=== PATIENT | male | born 1960 | race Caucasian/White ===

== ENCOUNTER 2020-01-22 12:01 | Inpatient (IN) | payer OTHER ==
[~2020-01-22] VITALS: Ht 172.7 cm; Wt 86.2 kg
[2020-01-22 11:45] VITALS: BP 145/63
--- NOTE | 2020-01-22 13:59 | NUR ---
ASSUMED CARE AT 1145. NEW ADMISSION FROM [facility], ARRIVED AT 1141 VIA EMS. PT IS ALERT AND ORIENTATED.DENIES ANY PAIN. EMS REPORTED PT WAS HYPERTENSIVE BUT HE IS STABLE UPON ARRIVAL TO UNIT. PT ABLE TO WALK WITH MIN ASSISTANCE FROM CART TO BED. PLAN FOR HD TODAY AND CALLED DR LYN FOR NEW CONSULT. LAST DIALYSIS WAS ON THURSDAY 01/18. L FA AV FISTULA INTACT AND +/+ BRUIT AND THRILLS. PT IS ANURIC, LAST BM ON 01/20. BS 149. PT DENIES ANY HISTORY OF STROKE OR SEIZURE. ON A MECHANICAL SOFT DIET WITH NECTAR LIQUID. SPOKE TO KARIME FERNANDEZ AT () AND WAS NOT SURE IF PT HAS DYSPHAGIA. REPORTED PT ABLE TO TAKE MEDS WHOLE WITH NECTAR LIQ. WAS ALSO GETTING BRIVARACETAM SOLUTION FOR SEIZURE ORDERED BY NEUROLOGY. LAST EEG SHOWED NO SEIZURE AND NO SEIZURE PRECAUTION ORDERED. PT HAS A HX OF ALLERGY TO SIMVASTATIN BUT UNABLE TO INFORM OF REACTION AND WAS NOT AWARE. PT IS ON ATORVASTATIN CURRENTLY. SPOKE TO ROXY LIPCOAT SPRAYER, WILL MAKE CHANGES IF NEEDED. ACTIVITY PER REPORT AND NO SEIZURE PRECAUTION WAS ORDERED. SPOKE TO ROXY LIPCOAT SPRAYER AND WILL SEE PT AND MAKE CHANGES IF NEEDED.
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
[2020-01-22 21:00] VITALS: BP 145/73
--- NOTE | 2020-01-23 00:11 | NUR ---
PT ALERT AND ORIENTED X 4. PT REQUESTED 02 AT 2L PER NC AT [facility] FOR COMFORT. LEFT ARM FISTULA WITH BRUIT AND THRILL. PT TAKES MEDS WHOLE WITH NECTAR THICK LIQUIDS. BLOOD SUGAR 257 AT HS. INSULIN GIVEN ORDERED. PT DENIES PAIN OR DISCOMFORT. BED ALARM ON FOR SAFETY. PT APPEARS TO BE SLEEPING ON HOURLY ROUNDS.
[2020-01-23 05:49] LABS: HEMATOCRIT 31.1 % (42.0-52.0); HEMOGLOBIN 10.3 gm/dL (14.0-18.0); MCH 30.4 pg (26.0-34.0); MCHC 33.3 g/dL (28.0-37.0); MCV 91.5 fL (80.0-100.0); RBC 3.39 mil/uL (4.50-6.00); RDW 15.3 % (10.5-14.5); WBC 6.5 thou/uL (4.0-11.0)
[2020-01-23 06:14] LABS: CALCIUM 8.4 mg/dL (8.5-10.1); CREATININE 11.1 mg/dL (0.7-1.3); POTASSIUM 4.4 mmol/L (3.5-5.1)
[2020-01-23 06:22] LABS: CHOLESTEROL 173 mg/dL (<200); HDL CHOLESTEROL 48 mg/dL (>40); LDL CHOLESTEROL 81 mg/dL (<100); TC:HDL 3.6 Ratio (Not establshd); TRIGLYCERIDE 221 mg/dL (<150); VLDL 44 mg/dL (<40)
[2020-01-23 06:27] LABS: SERUM ASSESSMENT Clear
[2020-01-23 06:49] LABS: FOLIC ACID 22.9 ng/mL (8.6-58.9)
[2020-01-23 07:15] VITALS: BP 135/58
--- NOTE | 2020-01-23 09:37 | NUR ---
ASSUMED CARE AT 0700. PATIENT IS ALERT AND ORIENTED X3. PATIENT BOWEN'S, VENTILATING EQUIPMENT INSTALLER ARE EQUAL. LUNGS ARE CLEAR AND DEMINISHED. ABD IS SOFT WITH BSX4. PATIENT IS A DIALYSIS PATIENT. PATIENT HAS LEFT UPPER ARM FISTULA FOR DIALYSIS. NEPHROLOGY HERE TO SEE PATIENT . PLAN DIALYSIS LATER TODAY. BS 250 THIS A.M. INSULIN GIVEN. UP WITH ASSIST OF 1 STAFF AND GAIT BELT AND WALKER TO AMBULATE. PATIENT DOESN'T VOID. FALL AND SAFETY PROTOCOLS IN PLACE. DENIES PAIN AT THIS TIME. CONTINUES TO PROGRESS SLOWLY TOWARDS D/C GOALS. WILL CONTINUE TO MONITER.
--- NOTE | 2020-01-23 12:44 | NUR ---
team meeting, reccomendation: re team . need to discuss with family dcp and location. he will need dme and dialysis set up for outpt.
--- NOTE | 2020-01-23 16:14 | NUR ---
I have reviewed the documentation by MACY CACERES from 01/23/20 to 01/23/20 and I concur with it. ANGI RECINOS, PT, DPT
[2020-01-23 19:35] VITALS: BP 161/83
--- NOTE | 2020-01-23 21:30 | NUR ---
MEDS WITH SIPS OF NECTAR THICK WATER, STATES NOT THIRSTY OTHERWISE. 11 UNITS LANTUS INSULIN GIVEN FOR BLOOD SUGAR OF 171. APPRECIATES DARK ROOM
[2020-01-24 04:06] LABS: GLYCOHEMOGLOBIN (HGB A1C) 10.3 % (4.8-5.6)
--- NOTE | 2020-01-24 06:04 | NUR ---
SLEPT A LITTLE BUT STATES DID NOT START UNTIL MIDNIGHT. BP THIS MORNING 111/58, DECIDED TO HOLD CLONIDINE UNTIL NEXT BP CHECK. QUIET, ON 2L PNC
[2020-01-24 08:00] VITALS: BP 118/62
--- NOTE | 2020-01-24 09:53 | NUR ---
ASSUMED CARE AT 0700. PATIENT IS ALERT AND ORIENTED X3. PATIENT BOWEN'S, CHEMICAL OPERATOR ARE EQUAL. LUNGS ARE CLEAR AND DEMINISHED. ABD IS SOFT WITH BSX4. PATIENT IS A DIALYSIS PATIENT AND HAS A LEFT UPPER ARM FISTULA FOR ACCESS. PATIENT DIALYSIS WAS DONE YESTERDAY WITH 1.5 L REMOVED. FALL AND SAFETY PROTOCOLS IN PLACE. DENIES PAIN AT THIS TIME. CONTINUES TO PROGESS SLOWLY TOWARDS D/C GOALS. PATIENT IS UP WITH ASSIST OF 1 STAFF TO CHAIR. WILL CONTINUE TO MONITER.
--- NOTE | 2020-01-24 16:36 | NUR ---
I have reviewed the documentation by KEELEY BATRES, MACY from 01/24/20 to 01/24/20 and I concur with it. ANGI RECINOS, DPT, PT
--- NOTE | 2020-01-24 16:40 | NUR ---
sandrine spoke with eula to see if pt ever went to one of their dialysis clinic in the past, he has not per eula, pt wanting location close to home in [place] where going to live per pt and brother. ( dialysis or [place] location). sandrine spoke with nick and he did go to that dialysis group few years ago. sandrine will talk with pt and family as to which dialysis group he wants to be set up with.
[2020-01-24 19:58] VITALS: BP 138/69
--- NOTE | 2020-01-25 03:09 | NUR ---
DENIES PAIN, UP TO TOILET FOR BM RIGHT BEFORE MIDNIGHT. ANTICIPATES DIALYSIS LATER TODAY. PLACED ON 2L OXYGEN AT HS. 11 UNITS OF LANTUS INSULIN GIVEN WITH BLOOD SUGAR OF 299
[2020-01-25 06:00] VITALS: BP 142/66
[2020-01-25 08:00] VITALS: BP 150/71
--- NOTE | 2020-01-25 09:14 | NUR ---
CONTACTED MACIE AT [facility] IN [facility], AND REQUESTED THAT HE PLEASE FAX THE HOME MEDICATION LIST PER THIS PATIENT'S REQUEST. MACIE WAS CURRENTLY UNABLE TO LOCATE A MED LIST, BUT STATED THAT HE WOULD LOOK IN MORE DETAIL LATER TODAY AND FAX IT TO [phone].
--- NOTE | 2020-01-25 09:32 | HC ---
[facility] [place] [address] CONSULTATION Name: KIRIT PIZANO Room #: 512-P ADM IN M.R.#: [id number] Admission: 01/22/20 Attend Phys: Keaton Dias MD Discharge: Date of : 58 Report #: [id number] THIS REPORT FOR: cc: AURORA - Family physician unknown AURORA - Family physician unknown Valentin Edwards MD ~ CC: Keaton SIMON unknown DATE OF SERVICE: 01/24/2020 ENDOCRINE CONSULTATION NOTE CONSULTING PHYSICIAN: Dr. Dias. REASON FOR CONSULTATION: Type 2 diabetes mellitus. HISTORY OF PRESENT ILLNESS: This is a 59-year-old male patient whose medical background is significant for multiple medical issues including hypertension, type 2 diabetes mellitus as well as end-stage kidney disease, on hemodialysis. The patient has recently dealt with the issues of encephalopathy, as well as generalized functional decline and eventually ended up having a lengthy hospital stay for these issues. He was admitted to the rehab unit on the to address those difficulties. The patient notes that he has been a diabetic for over 10 years and recalls having used coverage with basal and bolus insulin at home. However, he was unable to specifically comment on the dosage. He was maintained on in the outpatient setting. He does allude to the fact that his blood glucose values have fluctuated widely at baseline, but without major difficulties of hypoglycemia at that time. The patient has had end-stage renal disease for a few years and is maintained on hemodialysis. He is also known to have hypertension, hyperlipidemia and is maintained on nifedipine, atorvastatin, and clonidine for these issues. REVIEW OF SYSTEMS: CONSTITUTIONAL: Weakness, fatigability. No major weight changes. No fever or chills. HEENT: Negative for sore throat, sinus pain or ear drainage. PULMONARY: Negative for shortness of breath, cough or hemoptysis. CARDIAC: Negative for chest pain, palpitations, syncope or presyncope. GASTROINTESTINAL: Negative for abdominal pain, nausea, vomiting or changes in bowel or frequency. NEUROLOGY: Negative for loss of consciousness, but noted for possible seizure activity during his previous hospital stay and leading to it. [facility] [address] [place] [address] CONSULTATION Name: KIRIT PIZANO Room #: 512-P [facility] IN M.R.#: [id number] Admission: 01/22/20 Attend Phys: Keaton Dias MD Discharge: Date of : 58 Report #: [id number] PSYCHIATRIC: Noted for intermittent issues with anxiety. Otherwise, his review of systems noncontributory other than those mentioned in HPI. PAST MEDICAL HISTORY: 1. End-stage renal disease. 2. Hypertension. 3. Type 2 diabetes mellitus. 4. Gastroesophageal reflux disease. 5. Hyperlipidemia. 6. Osteoarthritis. 7. Metabolic encephalopathy. 8. Possible seizure disorder. OUTPATIENT MEDICATIONS: Include aspirin 81 mg daily, Calciferol 1000 units daily, Plavix 75 mg daily, nifedipine 30 mg daily, pantoprazole 40 mg daily, atorvastatin 40 mg daily, Lantus insulin 11 units daily, clonidine 0.2 mg t.i.d. ALLERGIES: METFORMIN and SIMVASTATIN. FAMILY HISTORY: Noncontributory. SOCIAL HISTORY: The patient denies the use of tobacco, alcohol or illicit drugs. PHYSICAL EXAMINATION: GENERAL: A pleasant male patient who is not in apparent pain or distress. VITAL SIGNS: Blood pressure is 118/62 mmHg, heart rate is 62 beats per minute, respiration 18 per minute, temperature 36.8 degrees Celsius. CONSTITUTIONAL: The patient is sitting upright in bed, appears comfortable, not in pain or distress. HEENT: Anicteric sclerae. Intact extraocular motions. NECK: Supple, without JVD or thyromegaly. CHEST: Noted for moderate air entry bilaterally with scattered rales, but no wheezes or crackles. HEART: Regular rate and rhythm without murmurs or gallops. ABDOMEN: Soft, lax. No guarding. Active bowel sounds. EXTREMITIES: Lower extremity exam, ankle edema. No skin breaks or ulcerations. NEUROLOGIC: Awake, alert and oriented to time, place and person. The remainder of his examination is noted for generalized weakness. PSYCHIATRY: Pleasant, interactive. Normal mood and affect. Normal thought process. LABORATORY RESULTS: Blood glucose values have been reviewed for the length of the patient's stay and these have ranged between 149 and 257 mg/dL, but most have been under 200 mg/dL. Otherwise, sodium 141, potassium 4.4, chloride 103, CO2 of 23, anion gap 15, BUN 66, creatinine 11.1, calcium 8.4, EGFR of 5, total [facility] [address] [place] [address] CONSULTATION Name: KIRIT PIZANO Room #: 512-P [facility] IN M.R.#: [id number] Admission: 01/22/20 Attend Phys: Keaton Dias MD Discharge: Date of : 58 Report #: [id number] cholesterol 173, triglycerides 221, HDL 48, LDL 81. White blood count 6.5, hemoglobin 10.3, hematocrit 31.1, platelets 323. Hemoglobin A1c 10.3. Vitamin D 20.1. ASSESSMENT AND PLAN: 1. Type 2 diabetes mellitus. Uncontrolled baseline as per his hemoglobin A1c of 10.3. During his hospital stay so far, the patient has gravitated gradually towards the desired inpatient blood glucose target range of 140-180 mg/dL without issues of hypoglycemia. This was achieved primarily with Lantus insulin 11 units at bedtime along with Humalog supplemental scale coverage that is now assigned at low intensity. In order to further achieve prandial control, I will add linagliptin 5 mg daily and maintain Lantus at the current rate as well as his Humalog supplemental scale. Blood glucose monitoring will commence a.c. and at bedtime and further therapeutic adjustments will be made accordingly. 2. Hypertension. The patient's level of blood pressure control is adequate, continue the current regimen. 3. Hyperlipidemia. The patient is currently maintained on atorvastatin therapy and tolerates it well, he is to continue with the same. 2. Vitamin D deficiency. Severe. He is to continue with high dose vitamin D therapy as he is doing currently. I have reviewed the patient's clinical care notes, laboratory data, and other pertinent clinical information for over 35 minutes in addition to my encounter time with the patient. I certainly appreciate this consultation by Dr. Dias. <ELECTRONICALLY SIGNED> By: Valentin Edwards MD 01/25/20 0932 [id number] Valentin Edwards MD /nt
--- NOTE | 2020-01-25 11:35 | NUR ---
ASSUMED CARE AT 0700. PT HAD AN UNEVENTFUL NIGHT AND SLEPT FAIRLY WELL. DENIES ANY PAIN. NO REPORTED SEIZURE ACTIVITIES, ON . LAST DIALYSED ON WEDNESDAY AND NEXT IS SCHEDULED THIS AFTERNOON. APPETITE GOOD, GIVEN INSULIN PER SSI. LAST BM 01/23. ANURIC. PARTICIPATING WITH THERAPY. TAMMY (GEOSPATIAL TECHNOLOGIST) GOT HIS HOME MED LISTS FROM [place] [place] AND MED LISTS SHOWN TO ANG[facility]ICA ESTRADA. NO NEW ORDERS. WILL CONT TO MONITOR.
--- NOTE | 2020-01-25 16:09 | NUR ---
I have reviewed the documentation by AMCY CACERES from 01/25/20 to 01/25/20 and I concur with it. ANGI RECINOS, PT, DPT
[2020-01-25 20:08] VITALS: BP 158/74
--- NOTE | 2020-01-26 03:30 | NUR ---
PATIENT HAS BEEN IN BED WATCHING TV TONIGHT. PATIENT HAS LEFT FISTULA PORT FOR DIALYSIS AT ANTECUBITAL AREA THAT IS WRAPPED WITH DRY AND INTACT GUAZE. PATIENT IS A/0 X4. HIS ACCUCHECK AT HS WAS 125. PATIENT RECEIVED LANTUS 16U WHICH WAS INCREASED FROM 11U. PATIENT IS UP WITH ASSIST X 1. HE IN ON NECTAR THICK FLUIDS. HE LIKES TO DRINK THE NECTAR THICK TEA AND HAS DRANK 3 TONIGHT. PATIENT HAS ORDER FOR 02 NC AT 2L AT NIGHT TO IN PLACE OF CPAP THAT HE USES AT HOME. TONIGHT HE WAS HAVING FEELING OF FAINT NAUSEA AND THAT HIS HS PILLS WERE NOT SETTLING WELL IN STOMACH. REPOSITIONED PATIENT THAT WAS SLOUCHED IN BED AND PUT HOB UP. 02 WAS REMOVED AND THIS HELPED HIM FEEL BETTER. HIS 02 ON RA WAS 96%. PATIENT REPLACING 02 NC PRN THRU NIGHT. PATIENT NOW SLEEPING WITH HEAD OF BED FLAT AND LAYING ON RIGHT SIDE. DENIES PAIN OTHER CHRISTIANSON. NO PRNS GIVEN. ABDOMEN SOFT NONTENDER. LCTA BILATERALLY. LAST BM 01/24. BED IN LOW POSITION AND BED ALARM IS ON.
[2020-01-26 07:41] VITALS: BP 122/62
--- NOTE | 2020-01-26 13:02 | NUR ---
ASSUMED CARE AT 0700. PT HAD AN UNEVENTFUL NIGHT AND SLEPT FAIRLY WELL. TOLERATED DIALYSIS YESTERDAY. ANURIC. HAD A BM YESTERDAY, APPETITE GOOD. DENIES ANY PAIN. PARTICIPATING WITH THERAPY. PROGRESSING TOWARDS GOAL. NO SEIZURE ACTIVITY, ON KEPPRA. BLOOD SUGAR TAKEN AND MEDICATED WITH INSULIN PER SLIDING SCALE. CONT TO MONITOR.
[2020-01-26 19:48] VITALS: BP 134/66
--- NOTE | 2020-01-27 03:33 | NUR ---
PLEASANT AND RESTING BUT NOT ALWAYS SLEEPING. NOW TAKING 16 UNITS LANTUS AT HS WITH BLOOD SUGAR = 220. TODAY HE IS TURNING 60 YEARS OLD AND THIS WAS MENTIONED AND HE PLANS TO TALK TO NEARBY FAMILY ON PHONE AGAIN TODAY. 2L PNC AT HS. TOLERATED MEDS WITH NECTAR THICK LIQUIDS. PLEASANT
[2020-01-27 08:35] VITALS: BP 137/70
[2020-01-27 19:48] VITALS: BP 146/72
--- NOTE | 2020-01-28 05:04 | NUR ---
Patient is alert and oriented x4 and ia able to communicate clearly with staff and in a pleasant manner. Patient has dialysis every , and Saturdays (had one yesterday succesfuly). Bruit and thrill are both present at the upper left arm fistula. Patient was compliant with all medications, vitals were within normal parameters and he had no major complaints or issues through the shift.
[2020-01-28 07:20] VITALS: BP 121/70
--- NOTE | 2020-01-28 13:21 | NUR ---
PT ALERT AND ORIENTED TIMES FOUR WITH BLUNTED AFFECT. VSS. PT DENEIS PAIN/SOA. PT TOLERATES MEDS AND MEALS. PT UP SITTING IN THE CHAIR WITH ASSIST OF ONE. PT SLOWLY PROGRESSING TOWRADS POC GOALS.
[2020-01-28 20:25] VITALS: BP 137/69
--- NOTE | 2020-01-29 04:57 | NUR ---
Patient is alert and oriented x4, with left sided weakness following a stroke. He is still able to communicate clearly and shows no signs f confusion either. He is able to make needs known, is vitals were within normal limits and he was compliant with all his medications. He has had no concerns or issue through the night.
[2020-01-29 09:22] VITALS: BP 148/77
--- NOTE | 2020-01-29 11:43 | NUR ---
ASSUMED CARE AT 0700. PT HAD AN UNEVENFUL NIGHT AND SLEPT FAIRLY WELL. DENIES ANY PAIN. APPETITE GOOD. HAD A SMALL BM YESTERDAY. ANURIC, ON HD ON /WED. AV FISTULA WITH POSITIVE THRILL AND BRUIT. PARTICIPATING WITH THERAPY. PROGRESSING TOWARDS GOAL. NO SEIZURE ACTIVIY REPORTED. CONT TO MONITOR.
--- NOTE | 2020-01-29 14:44 | NUR ---
I have reviewed the documentation by MACY CACERES from 01/29/20 to 01/29/20 and I concur with it. ANGI RECINOS, PT, DPT
--- NOTE | 2020-01-29 16:15 | NUR ---
unable to reach [facility] [place] location, call not going through.
[2020-01-29 19:45] VITALS: BP 145/73
--- NOTE | 2020-01-29 21:54 | NUR ---
ASSUMED CARE. PT ALERT AND COOPERATIVE, DENIED PAIN. ALARMS ON.
[2020-01-30 06:09] LABS: ABSOLUTE NEUTROPHILS 4.7 thou/uL (1.4-8.2); HEMATOCRIT 31.2 % (42.0-52.0); HEMOGLOBIN 10.4 gm/dL (14.0-18.0); MCH 30.7 pg (26.0-34.0); MCHC 33.3 g/dL (28.0-37.0); MCV 92.2 fL (80.0-100.0); MONOCYTES 7.2 % (1.0-8.0); PLATELET COUNT 256 thou/uL (150-400); POLYS 65.8 % (36.0-66.0); RBC 3.38 mil/uL (4.50-6.00); RDW 15.7 % (10.5-14.5); WBC 7.1 thou/uL (4.0-11.0)
[2020-01-30 06:39] LABS: CALCIUM 8.9 mg/dL (8.5-10.1); CREATININE 11.9 mg/dL (0.7-1.3); MAGNESIUM 2.3 mg/dL (1.8-2.4); POTASSIUM 4.3 mmol/L (3.5-5.1)
--- NOTE | 2020-01-30 06:44 | NUR ---
ASSUMED CARE OF PT AT 2100. PT IS A&OX4 AND VITAL SIGNS ARE STABLE. PT DENIES PAIN. ACCU CHECK ELEVATED AT HS. FISTULA TO LEFT ARM POSITIVE BRUIT AND THRILL. SEIZURE AND FALL PRECAUTIONS IN PLACE. NURSING WILL CONTINUE TO MONITOR.
[2020-01-30 08:34] VITALS: BP 144/79
--- NOTE | 2020-01-30 10:19 | NUR ---
ASSUMED CARE AT 0700. PATIENT IS ALERT AND ORIENTED X4. PATIENT BOWEN'S, WILDLIFE ENFORCEMENT MAJOR ARE EQUAL. LUNGS ARE CLEAR AND DEMINISHED. PATIENT USES 02 AT 2L PER N/C AT [facility]. PATIENT IS A DIALYSIS PATIENT WITH LEFT UPPER ARM FISTULA. PATIENT REMAINS ON NECTAR THICK LIQUIDS AND UP IN THE CHAIR FOR BREAKFAST WITH S.T. AND VITASTIM. FALL AND SAFETY PROTOCOLS IN PLACE. PATIENT C/O COUGHING AT [facility]. N.O. FOR CXR R/T COUGH AT [facility]. PLAN DIALYSIS LATER TODAY. CONTINUES TO PROGRESS SLOWLY TOWARDS D/C GOALS. WILL CONTINUE TO MONITER.
--- NOTE | 2020-01-30 11:20 | NUR ---
cm notified by [facility] nurse supervisor home restoration service that pt mom is her and has question before the team today, cm in meeting and will call her after meeting.
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
--- NOTE | 2020-01-30 12:27 | PLAN ---
[facility] [place] [address] REHAB UNIT PLAN OF CARE Name: KIRIT PIZANO Room #: 512-P ADM IN M.R.#: [id number] Admission: 01/22/20 Attend Phys: Keaton Dias MD Discharge: Date of : 58 Report #: [id number] THIS REPORT FOR: //name// CC: Keaton Dias [facility] unknown DATE OF SERVICE: 01/24/2020 PROGRESS NOTE AND OVERALL PLAN OF CARE SUBJECTIVE: The patient is seen back today in followup. He is in no distress. Last recorded temperature 98.5, pulse 73, respirations 20, blood pressure 161/83. He is alert. He is having some constipation and nursing is working with him on this. He has been working in therapies with transfers, contact guard. He is ambulating 275 feet min assist with a front-wheeled walker. In occupational therapy, he is mod assist, upper body dressing and max assist, lower body dressing. He is working in speech therapy with jzqi-re-ynpxrtns cognitive deficits, eccd-fo-dqkxwvrc memory deficits. ASSESSMENT: 1. Hypertensive encephalopathy. 2. Aspiration pneumonia. He has been on a modified diet. Per speech therapy, he is on a mechanical soft nectar thickened liquid diet. 3. End-stage renal disease, on hemodialysis. 4. History of seizures. Neurology followed up and he is continuing on the Keppra. 5. History of lacunar infarct. 6. Hypertension. 7. Hyperlipidemia. 8. Diabetes mellitus type 2. PLAN: The overall plan of care is based on the preadmission screen, post-admission physician evaluation and information garnered from therapy assessments. 1. Estimated length of stay is probably 7-14 days. 2. Medical prognosis is reasonably good. 3. Anticipated interventions includes the interdisciplinary acute inpatient rehabilitation program. 4. Anticipated functional outcomes would be for the patient to improve as far as mobility, ADLs, cognition, and swallowing, so that he can be up and ambulatory at least at the walker level and able to care for himself, so that he can return back to the home setting. 5. Discharge destination, he is wanting to go to his own apartment. His mother is also closely involved. 6. Expected therapy by discipline includes PT, OT and speech 1 hour per day each five days a week throughout the duration of the acute inpatient [address] [address] REHAB UNIT PLAN OF CARE Name: CHRISTINA PIZANOT Room #: 512-P [facility] IN [facility].#: [id number] Admission: 01/22/20 Attend Phys: Keaton Dias MD Discharge: Date of : 58 Report #: [id number] rehabilitation stay. The patient's prognosis for significant practical improvement within a reasonable period of time appears good. Given the patient's complex medical condition and the risk of further medical complications, rehabilitation services cannot be safely provided at a lower level of care such as a alf facility. <ELECTRONICALLY SIGNED> By: Keaton Dias MD 01/30/20 1227 0903 [id number] Keaton Dias MD /nt
--- NOTE | 2020-01-30 16:13 | NUR ---
I have reviewed the documentation by KEELEY BATRES, MACY from 01/30/20 to 01/30/20 and I concur with it. ANGI RECINOS, DPT, PT
[2020-01-30 19:37] VITALS: BP 133/74
--- NOTE | 2020-01-31 03:05 | NUR ---
UP TO TOILET WITH STANDBY ASSIST, WALKER, AND GAIT BELT FOR MODERATE BM, PATIENT RELATES THAT IT IS HARD STOOL, COLACE GIVEN AND PT INFORMED THAT HE CAN HAVE MANY 3 PER DAY TO GO ALONG WITH HIS SCHEDULED MIRALAX. PATIENT C/O HEARTBURN AT NIGHT SO WE HAVE DECIDED TO TRIAL TAKING PROTONIX AT NIGHT INSTEAD OF AM. COUGH AT NIGHT SO TRYING TESSALON. ALSO IS ATTEMPTING TO SLEEP IN RECLINER CHAIR. STATES HE IS NOTICING NEUROPATHY IN HIS FEET AND PLANS TO MENTION THIS TO HIS DOCTORS. CONTINUES NECTAR THICK LIQUIDS.
[2020-01-31 08:00] VITALS: BP 128/60
--- NOTE | 2020-01-31 09:15 | NUR ---
Care assumed at 0700. Patient was up in chair for breakfast. Did not care for his bisquit. No c/o pain. Takes in nectar thickened liquids and no straws.
--- NOTE | 2020-01-31 09:30 | NUR ---
sandrine called [phone] to got number to go through and had to leave a message for sw at [facility] [place]. sandrine passed on [facility] packet to MD Daly for kidney and he stated not for him to complete for medical, firer [facility] can complete. sandrine left it for [employer] [employer] tomorrow. sandrine faxed clinical for transfer from [place] to [place] for outpt [facility].
--- NOTE | 2020-01-31 16:41 | NUR ---
ASSUMED CARE AT NOON. PT HAD AN UNEVENTFUL NIGHT AND SLEPT FAIRLY WELL. DENIES ANY PAIN. ATE 100% OF HIS MEALS. PARTICIPATING WITH THERAPY AND PROGRESSING TOWARDS GOAL. NO SEIZURE ACTIVITY NOTED. CONT TO MONITOR.
[2020-01-31 20:11] VITALS: BP 119/69
[2020-01-31 23:06] LABS: HEP B SURFACE Ab(ANTI-HBS Reactive (()); HEPATITIS B SURFACE AG Negative (Negative)
--- NOTE | 2020-02-01 02:55 | NUR ---
ASSESSMENT: PT REMAIN ALERT AND ORIENT TIMES THREE, SPEECH SOMETIMES DELAYED. UP TO BR WITH GB, CANE AND SBA. PT WILL HAVE DIALYSIS THIS MORNING. ALSO, PT IS SCHEDULED FOR A VIDEO SWALLOW/VITAL SCAN IN THE AM. PT C/O ACID REFLUX. PROTONIX WAS GIVEN IN THE AM. WILL RECEIVE A SCHEDULED DOSE APPROXIAMTELY AT 0700. PT WAS OFFERED A COUPLE OF SALINE CRACKERS AND TO SAT UP IN RECLINER FOR A WHILE. PT SAT UP IN THE RECLINER FOR APPROXIMATELY 2 HRS AND STATE THAT HE "FEELS BETTER" AND "WAS READY TO GO TO BED". VSS, AFEBRILE. GOOD PROGRESS TOWARDS DC GOALS. WILL CONTINUE TO MONITOR.
[2020-02-01 08:00] VITALS: BP 129/70
--- NOTE | 2020-02-01 10:11 | NUR ---
cm returned phone call to [facility] ext [phone] for rani or [phone] for tan. cm left message, cm faxed updated hep labs to [facility] fax # [phone].
--- NOTE | 2020-02-01 16:40 | NUR ---
I have reviewed the documentation by MACY CACERES from 02/01/20 to 02/01/20 and I concur with it. ANGI RECINOS, PT, DPT
--- NOTE | 2020-02-01 17:38 | NUR ---
ASSUMED CARE OF PT AT 0700. PT IS A&OX4 AND VITAL SIGNS ARE STABLE. PT DENIES PAIN AND PARTICIPATED IN THERAPIES. DIALYSIS THIS SHIFT. PT DID NOT CALL FOR AM AND NOON MEDICATIONS, BUT WAS ABLE TO CALL FOR 1700 MEDICATIONS. FALL PRECAUTIONS IN PLACE AND NURSING WILL CONTINUE TO MONITOR.
[2020-02-01 20:11] VITALS: BP 95/61
--- NOTE | 2020-02-02 01:01 | NUR ---
DENIES PAIN, ASKING FOR 2100 MEDS AT THAT TIME, LIKES HIS PROTONIX AT HS RATHER THAN AM SINCE HIS OVERNIGHT HEARTBURN CAN GET BAD ENOUGH TO TRY SLEEPING IN RECLINER CHAIR. COLACE GIVEN PRN IN ORDER TO SOFTEN HIS STOOL AND MAKE HIS BMs EASIER. 16 UNITS OF LANTUS INSULIN GIVEN AT HS WHEN BLOOD SUGAR = 173. WONDERING OUT LOUD IF HE CAN USE OXYGEN AT HOME INSTEAD OF CPAP.
[2020-02-02 07:54] VITALS: BP 80/46
--- NOTE | 2020-02-02 08:50 | NUR ---
Nutrition: Seen for weekly follow up at breakfast. Reports eating continues to go well. He consumes 75-100% of most meals; 96% meal average per the last 14 recorded meals, 01/25 - 01/31, plus some occasional supplements even though they aren't actively ordered. His diet change to 1800kcal diabetic, 2 g Na, mechanically chopped, no mixed consistencies w/ nectar thick liquid. Continues to receive 3 hard q breakfast per his request. Takes in adequate protein for dialysis needs. Weight change of ~4# in last week, 174# per 01/25 and 170.4# per 01/31 - but weight easy to fluctuate with dialysis TuThSat for ESRD. Helped pt modify breakfast for the weekend to increase variety and change upcoming lunch. This weeks K+ WNL, but no new phos taken since last elevation on 01/24. RD made modifications last week to reduce phos content on menus. Change pt to low risk with 2 consecutive weeks of adequate nutrition intake.
--- NOTE | 2020-02-02 11:53 | NUR ---
sandrine called spoke with dr mcgee office in [facility], . [facility]. martha will have zoom meeting on 02/14/20 at 2pm to get established with dr mcgee for his pcp. dr mcgee office will call his mom ru to set up appointment for zoom meeting, need to send them h&p, and face sheet alone with dc orders day of dc, fax to [phone]. sandrine passed on information to martha and he agrees with dc information.
--- NOTE | 2020-02-02 15:42 | NUR ---
I have reviewed the documentation by MACY CACERES from 02/02/20 to 02/02/20 and I concur with it. ANGI RECINOS, PT, DPT
--- NOTE | 2020-02-02 16:04 | NUR ---
ASSUMED CARE OF PATIENT AT 0700. COMPLAINED OF LIGHTHEADEDNESS. BP AT 80/46, PULSE AT 102. REQUESTED MEDICATIONS. EATING MEALS WITH THICKENED LIQUIDS. ADHERENT WITH DIET REGIMEN. SAYS STARTED TO FEEL BETTER. 10 AM bp AT 93/54, PULSE 116. COMPLAINED OF LIGHTHEADEDNESS WHEN SITTING DURING THERAPY. bp AT 88/50, PULSE 119, ON RECHECK BP AT 93/54, PULSE 116. ASSISTED TO ROOM. SAYS FEELS BETTER. EVALUATED BY SPEECH THERAPY. REMINDED TO TUCK CHIN. NOE SNOT HAD ANY CHOKING EPISODES. FOLLOWING INSTRUCTIONS WELL. BLOOD SUGARS AT 0730 AT 245 AND 256 AT 1130. LISPRO MEDICATION ADMINISTERED PER SLIDING SCALE. HAD BM IN THE BATHROOM.
--- NOTE | 2020-02-02 16:44 | NUR ---
FAXED REFERRAL TO [facility] HH SPOKE WITH ALEXANDER IN ADM THEY CAN ACCEPT PT FOR HH AND DC PATIENT CLERICAL ASSISTANT WILL CALL WITH PT'S ADDRESS THAT THEY WILL DC TO.
[2020-02-02 16:52] VITALS: BP 93/54
[2020-02-02 21:38] VITALS: BP 95/63
--- NOTE | 2020-02-03 02:25 | NUR ---
ASKING FOR HS MEDS AT 2020 APPRECIATES INTIAL DOSE OF GABAPENTIN IT HAS HELPED HIS FOOT PAIN, ALSO FEELS THAT TAKING PROTONIX AT NIGHT IS BETTER FOR HIS HEARTBURN THAN TAKING IT IN THE MORNING. IS CONCERNED THAT HE CRIES MORE EASILY THAN HE USED TO, HE USED TO TAKE PROZAC AND WONDERS IF MISSING THAT OR THE STROKE IS CONTRIBUTING MORE. 18 UNITS OF LANTUS AT HS FOR BLOOD SUGAR OF 224. FLUIDS ENCOURAGED AND HE DEMONSTRATES CHIN TUCK WITH MEDS AND WATER.
[2020-02-03 07:13] VITALS: BP 102/78
[2020-02-03 19:15] VITALS: BP 150/76
--- NOTE | 2020-02-04 05:00 | NUR ---
PT REQUIRES GAITBELT AND SBA WITH TRANSFERS. WAS IN BED MOST OF THE NIGHT, THEN TRANSFERRED TO THE CHAIR FOR ABOUT 4 HRS. DENIES SOA, REQUESTED @[facility] FOR COMFORT.ANURIA. SWALLOWS MEDS WELL, WHOLE AND WITH THIN LIQUIDS-FOLLOWS CHIN TUCK TECHNIQUE WELL.DENIES PAIN. CALLS APPROPRIATELY.
[2020-02-04 12:35] VITALS: BP 124/70
--- NOTE | 2020-02-04 18:45 | NUR ---
PATIENT CARE ASSUMED AT 0700 - PATIENT STATED NO PAIN. TOLERATED MEDICATIONS WELL - APPETITE FAIR. ENCOURAGED TO TILT CHIN WHEN ATAKING MEDICATIONS. STATED NO PAIN WHEN ASSESSED. INSULIN GIVEN AT BREAKFAST AND LUNCH BUT HELD AT DINNER TIME - 132 NOT INDICATED. SWALLOWED WELL WITH JUST WATER - NO ASPIRATION.
[2020-02-04 19:35] VITALS: BP 117/69
--- NOTE | 2020-02-05 04:28 | NUR ---
Assumed care on 02/04/20 @ 19:30, Standing at bedside folding clothes. Cooperated with assessment, HRRR, Lungs CTA bilat, ABD sounds normoactive x 4Q. Denies pain. Takes meds whole with thin water, follows swollowing protocol to tuck chin when swollowing. Awakens @ 04:30 requesting 0600 and 0700 meds. Will continue to round as per unit protocol for safety and comfort.
[2020-02-05 08:00] VITALS: BP 116/56
--- NOTE | 2020-02-05 16:05 | NUR ---
ASSUMED CARE AT 0700. PATIENT IS ALERT AND ORIENTED X4. PATIENT BOWEN'S, INCOMING FREIGHT CLERK AER EQUAL. PATIENT INJURED HIS LEFT TOE WHEN BEING WEIGHED THIS AM BY NOC SHIFT. FOOT CLEANED AND COVERED WITH 2X2 AND NAV. GAYLA SPRAY MACHINE TENDER HERE TO SEE PATIENT AND CONSULTED WOUND CARE. UP IN W/C FOR MEALS IN THE DINING ROOM. S.T. HERE TO DO VITASTIM WITH BREAKFAST. FALL AND SAFETY PROTOCOLS IN PLACE. DENIES PAIN AT THIS TIME. CONTINUES TO PREGRESS TOWARDS D/C GOALS. PLAN D/C TD MOTHERS HOME TOMMARROW. PATIENT IS UP WITH ASSIST OF 1 WITH WALKER AND GAIT BELT TO W/C. WILL CONTINUE TO MONITER.
--- NOTE | 2020-02-05 18:11 | NUR ---
TALKED WITH MON ABOUT DM, EDUCATION. MOM WANTS ACCUCHECK MACHINE, STRIPS AND LANCETS , ALL MEDS AND SCRIPTS SENT TO -[facility] AT [facility] PLAN DIALYSIS IN AM. NEED CM TO F/U ON OUTPT DIALYSIS FACILITY. PATIENT IS TO HAVE NEW PCP, DR. FERGUSON AT [facility] AND WILL HAVE ZOOM MEETING ON 02/14/20 AT 2PM
[2020-02-05 21:01] VITALS: BP 155/75
--- NOTE | 2020-02-06 08:52 | NUR ---
Assumed care on 02/04 @ 19:30, A&OX4, Calls for medication an hour early, education provided as to medication and time it is due, provided as early as within time safe limit. Dressing to left toe C/D/I. FSBS 178, Glargine 18 Units provided as ordered. Patient slept in chair with chair alarm in position. Lungs CTA bilat, ABD N x 4Q, HRRR. Patient tucks chin to swollow.
[2020-02-06] MEDS ORDERED: GLUCOMETER (09:04)
[2020-02-06 09:19] VITALS: BP 155/75
[2020-02-06 09:28] VITALS: BP 155/74
--- NOTE | 2020-02-06 10:19 | NUR ---
PATIENT RESTING IN BED TOOK AM MEDS AND INSULIN ORDERED. PT HAS ON LEFT FOOT ON BALL OF FOOT UNDER GREAT TOE WHAT LOOKS LIKE HEMATOMA WOUNG CARE NURSE CALLED AND IS HERE WITH THIS NURSE HE APPLIED BETADINE TO AREA AND COVERED WITH GAUZE THEN THIS NURSE PLACED CALL TO DR RIVAS AT [phone] SO HE COULD SEE PATIENT AND GIVE ORDERS FOR DISCHARGE. PATIENT IS DISCHARGING TO HOME WITH HIS MOTHER AFTER DIAYLSIS. GAYLA ESTRADA WAS HERE EARLIER TO SEE PATIENT CALLED RX'S TO [facility] AND WROTE ONE SHE WILL COME UP TO PATIENT'S ROOM TO SPEAK WITH PATIENT AND PATIENT'S MOM.THE PATIENT STATES THAT ON WEDNESDAY EARLY AM THAT MEDICAL INSTRUMENT CABLE FABRICATOR PUSHED WEIGHT MACHINE/SCALE INTO ROOM HE WAS IN BEDSIDE CHAIR HHE WAS TOLD TO STEP UP ON SCALE THERE WAS NO LIGHT ON AND HE HIT FOOT WAS BAREFOOT HAD SHOWER NIGHT BEFORE. HE STATES THAT IT BLEED ALOT OF BLOOD.
[2020-02-06] MEDS ORDERED: EFFEXOR XR37.5 MG PO (10:44)
[2020-02-06] MEDS ORDERED: MIRALAX17 GM PO (10:44)
[2020-02-06] MEDS ORDERED: NOVOLOG100 UNIT/1 SUBQ (10:44)
[2020-02-06] MEDS ORDERED: LIPITOR40 MG PO (10:44)
[2020-02-06] MEDS ORDERED: TRADJENTA5 MG PO (10:44)
[2020-02-06] MEDS ORDERED: RENVELA800 MG PO (10:44)
[2020-02-06] MEDS ORDERED: KEPPRA 500 MG500 MG PO (10:44)
[2020-02-06] MEDS ORDERED: LANTUS100 UNIT/M SUBQ ×2 (10:44)
[2020-02-06] MEDS ORDERED: LO-DOSE ASPIRIN81 M1 PO (10:44)
[2020-02-06] MEDS ORDERED: PLAVIX 75 MG TA75 M1 PO (10:44)
[2020-02-06] MEDS ORDERED: ZESTRIL10 MG PO (11:56)
[2020-02-06] MEDS ORDERED: TRIPHROCAPS SOFT1 MG PO (11:59)
[2020-02-06] MEDS ORDERED: VITAMIN D325 MC1 PO (11:59)
[2020-02-06] MEDS ORDERED: NEURONTIN300 MG PO (11:59)
--- NOTE | 2020-02-06 13:00 | NUR ---
team meeting reccommendation: flat screen worker going to have education on dc for today with pt and his mom. will have [facility], dr mcgee pcp zoom meeting for pcp set up with md. kosta anthony ( pt, ot, st, nursing). fww- provider plus.
--- NOTE | 2020-02-06 14:24 | NUR ---
Pt dcing home today. Pt to start T-TH_SAT dialysis schedule at [facility]. DC summary/HH orders faxed and confirmed with them as well as with [facility].
--- NOTE | 2020-02-06 14:59 | NUR ---
DR LAMAR HERE TO ASSESS PT'S LEFT TOE. NEW ORDER FOR GENTAMICIN AFTER CLEANING AND COVER WITH BANDAID. WOUND DISCHARGE PICTURES TAKEN AND LABS DRAWN PER DIAYLSIS NURSE. PT W/O PAIN OR RESP DISTRESS.
[2020-02-06 15:57] LABS: ALBUMIN 3.3 g/dL (3.4-5.0); CALCIUM 8.8 mg/dL (8.5-10.1); CREATININE 6.7 mg/dL (0.7-1.3); PHOSPHORUS 1.8 mg/dL (2.5-4.9); POTASSIUM 3.9 mmol/L (3.5-5.1)
[2020-02-06 17:40] VITALS: BP 155/75
--- NOTE | 2020-02-06 19:01 | NUR ---
AT 18:45 DISCHARGE PAPERS REVIEWED SIGNED AND COPY IN CHART. ALL BELONGINGS PACKED AND SENT WITH PATIENT. GENTAMICIN SENT WITH PATIENT HE DID NOT WANT TX DONE HERE AREA WAS COVERED AND HE HAD SOCKS AND SHOES ON. GAVE PATIENT GABAPENTIN 300 MG XS 1 AND LEVETIRACETAM 500 MG XS 1 BEFORE DISCHARGE. DIAYLSIS REMOVED 1 L OF FLUID AND B/P WAS 186/86 WHEN THEY FINISHED. PATIENT TAKEN VIA W/C TO FAMILY CAR MOM AND BROTHER HERE TO [place]. GAYLA ESTRADA SPOKE WITH MOM ABOUT ORDERS. PT W/O PAIN OR RESP DISTRESS.
[2020-02-06 19:06] VITALS: BP 155/75
[2020-02-07] MEDS ORDERED: TRADJENTA5 MG PO ×3 (11:35→12:00)
[2020-02-07] MEDS ORDERED: LANTUS100 UNIT/M SUBQ ×6 (11:35→12:00)
[2020-02-07] MEDS ORDERED: VITAMIN D325 MC1 PO ×2 (11:35→11:45)
[2020-02-07] MEDS ORDERED: NOVOLOG100 UNIT/1 SUBQ ×4 (11:35→12:00)
--- NOTE | 2020-02-07 12:01 | NUR ---
cm received message from pt mom rt medication questions. cm passed on message to rn medical inpatient services and bedside nurse again when over all dc medication with names of medication with his mom. per pt pharm he has no coverage for dm supplies, insulin or po medication, sent to or but he is not established there yet rt from [place]. ok per cm fish hatchery supervisor to vouch for medication 2 weeks until he have pcp appointment on with dr mcgee.
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
== END 2020-02-06 18:45 | disposition home or self-care (01) | DRG 91 ==
PROVIDERS: Internal Medicine Nephrology; Nurse Practitioner; Nurse Practitioner Family; ADMIT Physical Medicine & Rehabilitation; ATTEND Physical Medicine & Rehabilitation
DX: G92 Toxic encephalopathy (principal); N18.6 End stage renal disease; J69.0 Pneumonitis due to inhalation of food and vomit; I12.0 Hypertensive chronic kidney disease with stage 5 chronic kidney disease or end stage renal disease; Z99.2 Dependence on renal dialysis; R13.10 Dysphagia, unspecified; E11.22 Type 2 diabetes mellitus with diabetic chronic kidney disease; E78.5 Hyperlipidemia, unspecified; E11.65 Type 2 diabetes mellitus with hyperglycemia
CPT/HCPCS: 10112; 32100

== ENCOUNTER 2020-02-27 10:22 | Emergency (ER) | payer OTHER ==
[~2020-02-27] VITALS: Ht 180.3 cm; Wt 78.9 kg
[~2020-02-27 10:22] MED LIST: EFFEXOR XR37.5 MG PO; GLUCOMETER; KEPPRA 500 MG500 MG PO; LANTUS100 UNIT/M SUBQ; LIPITOR40 MG PO; LO-DOSE ASPIRIN81 M1 PO; MIRALAX17 GM PO; NEURONTIN300 MG PO; NOVOLOG100 UNIT/1 SUBQ; PLAVIX 75 MG TA75 M1 PO; RENVELA800 MG PO; TRADJENTA5 MG PO; TRIPHROCAPS SOFT1 MG PO; VITAMIN D325 MC1 PO; ZESTRIL10 MG PO
[2020-02-27 11:20] LABS: ABSOLUTE NEUTROPHILS 6.3 thou/uL (1.4-8.2); BASOPHILS 0.8 % (0.0-2.0); EOSINOPHILS 1.8 % (0.0-3.0); HEMATOCRIT 33.3 % (42.0-52.0); LYMPHOCYTES 13.9 % (24.0-44.0); MCH 30.7 pg (26.0-34.0); MCHC 33.1 g/dL (28.0-37.0); MCV 92.9 fL (80.0-100.0); MONOCYTES 6.1 % (1.0-8.0); PLATELET COUNT 228 thou/uL (150-400); POLYS 77.4 % (36.0-66.0); RBC 3.59 mil/uL (4.50-6.00); RDW 16.2 % (10.5-14.5); WBC 8.2 thou/uL (4.0-11.0)
[2020-02-27 11:33] LABS: ANION GAP 8 mmol/L (7-16); BUN 25 mg/dL (7-18); CALCIUM 8.8 mg/dL (8.5-10.1); CHLORIDE 100 mmol/L (98-107); CO2 31 mmol/L (21-32); CREATININE 5.7 mg/dL (0.7-1.3); GLUCOSE 149 mg/dL (74-106); POTASSIUM 4.1 mmol/L (3.5-5.1); SODIUM 139 mmol/L (136-145)
[2020-02-27 11:37] LABS: APTT 27.2 Seconds (24.5-32.8); PROTIME 10.5 Seconds (9.3-11.4)
[2020-02-27 11:43] LABS: ALBUMIN 3.9 g/dL (3.4-5.0); SGOT 25 U/L (15-37); SGPT 49 U/L (30-65); TOTAL BILIRUBIN 0.4 mg/dL (0.2-1.0); TOTAL PROTEIN 8.4 g/dL (6.4-8.2); TROPONIN-I <0.06 ng/mL (<0.06)
--- NOTE | 2020-02-27 12:37 | EKG ---
[facility] [place] [address] ELECTROCARDIOGRAM REPORT Name: KIRIT PIZANO Room #: REG [facility]#: [id number] Admission: 02/27/20 Attend Phys: Discharge: Date of : 58 Report #: [id number] THIS REPORT FOR: cc: FAM - Family physician unknown FAM - Family physician unknown Edi Reich MD [facility] ~ THIS REPORT FOR: //name// [facility] ED Test Date: 2020-02-27 Test Time: 11:09:48 Pat Name: KIRIT PIZANO Department: Room: Gender: Occupational Therapy Director: NICKO : 1960 Requested By: Levar White Order Number: [id number] MD: Edi Reich Measurements Intervals [place] Rate: 84 P: 62 CT: 165 QRS: 20 QRSD: 100 T: 63 QT: 380 QTc: 450 Interpretive Statements Sinus rhythm RSR' in V1 or V2, probably normal variant No previous ECG available for comparison Electronically Signed On 02-27-2020 12:37:04 CISTERN ROOM WORKING SUPERVISOR by Edi Reich [email or web address] <ELECTRONICALLY SIGNED> By: Edi Reich MD, FACC 02/27/20 1237 1109 08 Edi Reich MD, FACC /EPI
[2020-02-27 15:24] VITALS: BP 134/76
== END 2020-02-27 15:27 | disposition home or self-care (01) ==
LOC: ER 10:22
PROVIDERS: Emergency Medicine
DX: H11.31 Conjunctival hemorrhage, right eye (principal); H40.051 Ocular hypertension, right eye; R42 Dizziness and giddiness; I13.2 Hypertensive heart and chronic kidney disease with heart failure and with stage 5 chronic kidney disease, or end stage renal disease; E11.22 Type 2 diabetes mellitus with diabetic chronic kidney disease; N18.6 End stage renal disease; I50.9 Heart failure, unspecified; Z88.8 Allergy status to other drugs, medicaments and biological substances; Z88.6 Allergy status to analgesic agent; Z79.899 Other long term (current) drug therapy; Z79.4 Long term (current) use of insulin; Z79.82 Long term (current) use of aspirin; Z99.2 Dependence on renal dialysis

== ENCOUNTER 2021-06-02 11:01 | Emergency (ER) | payer OTHER ==
[~2021-06-02] VITALS: Ht 172.7 cm; Wt 87.5 kg
[2021-06-02 11:13] VITALS: BP 157/101
[2021-06-02] MEDS ORDERED: APAP W/CODEINE1 TA2 PO (12:14)
== END 2021-06-02 12:44 | disposition home or self-care (01) ==
LOC: ER 11:01
DX: S43.402A Unspecified sprain of left shoulder joint, initial encounter (principal); I13.2 Hypertensive heart and chronic kidney disease with heart failure and with stage 5 chronic kidney disease, or end stage renal disease; I50.9 Heart failure, unspecified; N18.6 End stage renal disease; E11.9 Type 2 diabetes mellitus without complications; Z99.2 Dependence on renal dialysis; Z95.1 Presence of aortocoronary bypass graft; Z86.73 Personal history of transient ischemic attack (TIA), and cerebral infarction without residual deficits; Z79.82 Long term (current) use of aspirin; Z79.4 Long term (current) use of insulin; Z79.899 Other long term (current) drug therapy; Z88.5 Allergy status to narcotic agent; Z88.8 Allergy status to other drugs, medicaments and biological substances; W22.8XXA Striking against or struck by other objects, initial encounter; Y93.89 Activity, other specified; Y92.89 Other specified places as the place of occurrence of the external cause; Y99.8 Other external cause status